=== PATIENT | female | born 1970 | race Caucasian/White ===

== ENCOUNTER → 2017-10-28 | Outpatient (CLI) | payer BC ==
[~2017-10-28] MED LIST: BIOT0.5P MC; CYCL-331 PO; FLUT9.9S NS; MELO15TA23 PO; OLME1TAB21 PO; TRAM50TA PO
--- NOTE | 2017-10-29 07:19 | RAD ---
Lumbar spine, 3 views, 10/28/2017: History: Low back pain, bulging disc The lumbar vertebral heights are well-maintained. There is a slight lumbar scoliosis. There is minimal disc space narrowing at several levels and mild scattered marginal spurs. There are mild degenerative changes involving the facet joints bilaterally in the lower lumbar spine. No fracture or dislocation is identified. Aortic calcific plaquing is noted. IMPRESSION: 1. Mild scattered degenerative changes. 2. No acute bony abnormality is detected.
== END | disposition home or self-care (01) ==
LOC: RAD 16:53
PROVIDERS: ATTEND Nurse Practitioner Family
DX: M47.896 Other spondylosis, lumbar region (principal); M41.86 Other forms of scoliosis, lumbar region; I70.0 Atherosclerosis of aorta
CPT/HCPCS: 72100